=== PATIENT | female | born 1995 | race Caucasian/White ===

== ENCOUNTER 2018-05-23 10:28 | Emergency (ER) | payer MEDICAID ==
[~2018-05-23] VITALS: Ht 152.4 cm; Wt 48.5 kg
[2018-05-23 10:36] VITALS: Ht 152.4 cm; Wt 48.5 kg
[2018-05-23 11:26] VITALS: BP 129/93
== END 2018-05-23 11:26 | disposition home or self-care (01) ==
LOC: ED 10:28
DX: S61.210A Laceration without foreign body of right index finger without damage to nail, initial encounter (principal); W26.0XXA Contact with knife, initial encounter; Y93.89 Activity, other specified; Y92.89 Other specified places as the place of occurrence of the external cause; Y99.8 Other external cause status
CPT/HCPCS: 90715